=== PATIENT | male | born 1985 | race Hispanic/Latino ===

== ENCOUNTER 2016-11-21 08:19 | Emergency (ER) | payer OTHER, MEDICAID ==
[2016-11-21 08:29] VITALS: BP 136/88; PULSE 89; RESP 18; TEMP 98.1; O2SAT 97
--- NOTE | 2016-11-21 08:56 | C.PDOC ---
History Of Present Illness 31-year-old male sent to ED from custodial for evaluation of suicidal ideations. As per EMS, patient stated "I want to get high and " at the custodial. Patient denies any suicidal ideation, depression or physical complaints at this time. Time Seen by Provider: 11/21/16 08:31 Chief Complaint (Nursing): Psychiatric Evaluation History Per: Patient History/Exam Limitations: no limitations Current Symptoms Are (Timing): Gone Suicide/Self Injury Attempted (Context): None Modifying Factor(s): None Past Medical History Reviewed: Historical Data, Nursing Documentation, Vital Signs Vital Signs: Last Vital Signs Temp 98.1 F 11/21/16 08:25 Pulse 89 11/21/16 08:25 Resp 18 11/21/16 08:25 BP 136/88 11/21/16 08:25 Pulse Ox 97 11/21/16 11:29 - Medical History PMH: Asthma Family History: States: No Known Family Hx - Social History Hx Alcohol Use: No Hx Substance Use: Yes - Immunization History Hx Tetanus Toxoid Vaccination: No Hx Influenza Vaccination: Yes Hx Pneumococcal Vaccination: No Review Of Systems Except As Marked, All Systems Reviewed And Found Negative. Constitutional: Negative for: Fever, Chills Cardiovascular: Negative for: Chest Pain, Palpitations Respiratory: Negative for: Shortness of Breath Gastrointestinal: Negative for: Nausea, Vomiting, Abdominal Pain Neurological: Negative for: Headache Psych: Negative for: Anxiety, Depression, Suicidal ideation Physical Exam - Physical Exam Appears: Well, Non-toxic, No Acute Distress Skin: Warm, Dry, No Rash Head: Atraumatic, Normacephalic Eye(s): bilateral: Normal Inspection, PERRL, EOMI Oral Mucosa: Moist Cardiovascular: Rhythm Regular Respiratory: Normal Breath Sounds, No Rales, No Rhonchi, No Wheezing Extremity: Bilateral: Atraumatic, Normal ROM Neurological/Psych: Oriented x3, Normal Speech, Normal Cognition Gait: Steady ED Course And Treatment O2 Sat by Pulse Oximetry: 97 (RA) Pulse Ox Interpretation: Normal Progress Note: Blood work, UA, UDS ordered and reviewed. Patient seen by crisis counselor, who discussed patient with medical operations supervisor psychiatrist Dr. [place]. Patient has been cleared for discharge from psychiatric standpoint. Patient is AAOx3, ambulating normally, and denies depression or suicidal ideations. Will discharge, instructed patient to follow up with PMD/clinic, and to return to ED if he has any concerning symptoms. Disposition Counseled Patient/Family Regarding: Diagnosis, Need For Followup - Disposition Referrals: [facility] [Outside] Disposition: HOME/ ROUTINE Disposition Time: 09:35 Condition: STABLE Additional Instructions: FOLLOW UP WITH YOUR DOCTOR/CLINIC IN 1-2 DAYS RETURN TO ER IF YOU HAVE ANY CONCERNING SYMPTOMS Forms: General Discharge Instructions Print Language: ROMANIAN - POA Present On Arrival: None - Clinical Impression Clinical Impression: Evaluation by psychiatric service required - Scribe Statement The provider has reviewed the documentation as recorded by the Davidibferdinand Thurston All medical record entries made by the Ray were at my direction and personally dictated by me. I have reviewed the chart and agree that the record accurately reflects my personal performance of the history, physical exam, medical decision making, and the department course for this patient. I have also personally directed, reviewed, and agree with the discharge instructions and disposition.
== END 2016-11-21 09:39 | disposition home or self-care (01) ==
LOC: C.ER 08:19
DX: Z00.8 Encounter for other general examination (principal)